=== PATIENT | female | born 1960 | race Two or more races ===

== ENCOUNTER 2021-06-26 08:44 | Emergency (ER) | payer OTHER ==
[~2021-06-26] VITALS: Ht 172.7 cm; Wt 90.7 kg
[2021-06-26] MEDS ORDERED: KETOROLAC TROMETH 60MG/2ML VIAL IM ONE (11:15)
[2021-06-26 11:46] VITALS: BP 137/77
== END 2021-06-26 13:21 | disposition home or self-care (01) ==
LOC: EDBD 08:44 → ER 08:44
DX: S16.1XXA Strain of muscle, fascia and tendon at neck level, initial encounter (principal); S39.012A Strain of muscle, fascia and tendon of lower back, initial encounter; V43.52XA Car driver injured in collision with other type car in traffic accident, initial encounter; Y93.89 Activity, other specified; Y92.89 Other specified places as the place of occurrence of the external cause; Y99.8 Other external cause status
CPT/HCPCS: 72040; 72100; 93005; 96372; 99284; J1885